=== PATIENT | male | born 1960 | race Caucasian/White ===

== ENCOUNTER → 2019-05-30 | Day surgery (SDC) | payer OTHER ==
[~2019-05-30] VITALS: Ht 175.3 cm; Wt 80.7 kg
[2019-05-30 08:31] VITALS: BP 134/83
[2019-05-30 12:49] VITALS: BP 145/90
== END | disposition home or self-care (01) ==
LOC: GI 08:02 → OR 10:00 → GI 10:00
DX: Z12.11 Encounter for screening for malignant neoplasm of colon (principal); D12.5 Benign neoplasm of sigmoid colon; K64.8 Other hemorrhoids; K63.89 Other specified diseases of intestine; K57.32 Diverticulitis of large intestine without perforation or abscess without bleeding; Z86.010 Personal history of colon polyps; Z88.5 Allergy status to narcotic agent; F17.210 Nicotine dependence, cigarettes, uncomplicated; Z79.82 Long term (current) use of aspirin; Z79.899 Other long term (current) drug therapy; Z85.820 Personal history of malignant melanoma of skin
CPT/HCPCS: 45378; J1200; J1610; J2250; J2310; J3010; J3490